=== PATIENT | male | born 1995 | race Caucasian/White ===

== ENCOUNTER 2019-10-20 23:39 | Emergency (ER) | payer SELFPAY ==
[~2019-10-20] VITALS: Ht 180.3 cm; Wt 86.3 kg
[2019-10-21] MEDS ORDERED: ACETAMINOPHEN 325MG TABLET PO ONE (02:00)
[2019-10-21 02:36] LABS: HEMATOCRIT. 43.2 % (42.0-52.0); HEMOGLOBIN. 14.6 g/dL (14.0-18.0); MEAN CORPUSCULAR HEMOGLOBIN 29.8 pg (28.0-32.0); MEAN CORPUSCULAR VOLUME 88.2 fL (80.0-94.0); MEAN PLATELET VOLUME 8.4 fl (7.4-10.4); PLATELET 152 x1000/uL (130-400); RED CELL DISTRIBUTION WIDTH 13.3 % (11.6-14.6)
[2019-10-21 02:42] LABS: CHLORIDE 105 mEq/L (98-107)
[2019-10-21] MEDS ORDERED: KETOROLAC 30MG/ML VIAL IM ONE (03:15)
[2019-10-21 03:27] VITALS: BP 125/75
[2019-10-21 04:45] LABS: ATYPICAL LYMPHOCYTES 4
[2019-10-21 04:46] LABS: PLATELET ESTIMATE NORMAL
== END 2019-10-21 03:48 | disposition home or self-care (01) ==
LOC: ER 23:39
DX: R51 Headache (principal)
CPT/HCPCS: 36415; 70450; 80053; 85025; 96372; 99284; J1885

== ENCOUNTER 2021-09-09 08:40 | Emergency (ER) | payer MEDICAID, OTHER ==
[~2021-09-09] VITALS: Ht 180.3 cm; Wt 109.0 kg
[2021-09-09] MEDS ORDERED: MECLIZINE 25MG TABLET PO ONE (10:15)
[2021-09-09] MEDS ORDERED: MECL-159 MT (11:21)
[2021-09-09 11:39] VITALS: BP 134/93
== END 2021-09-09 11:40 | disposition home or self-care (01) ==
LOC: ER 08:40
DX: R42 Dizziness and giddiness (principal); R51.9 Headache, unspecified; R03.0 Elevated blood-pressure reading, without diagnosis of hypertension
CPT/HCPCS: 99281